=== PATIENT | male | born 1980 | race Hispanic/Latino ===

== ENCOUNTER 2018-12-04 08:41 | Emergency (ER) | payer SELFPAY ==
[2018-12-04 09:19] LABS: APPEARANCE,URINE Clear (CLEAR); BILIRUBIN,URINE Negative (NEGATIVE); COLOR,URINE Yellow (YELLOW); GLUCOSE, URINE (UA) Negative (NEGATIVE); KETONES,URINE Negative (NEGATIVE); LEUKOCYTE ESTERASE ,URINE Trace (NEGATIVE); NITRATE,URINE Negative (NEGATIVE); OCCULT BLOOD,URINE Negative (NEGATIVE); PROTEIN,URINE Negative (NEGATIVE)
[2018-12-04] MEDS ORDERED: KETOROLAC TROMETHAMINE 30MG/ML ONE (09:26)
[2018-12-04] MEDS ORDERED: ORPHENADRINE CITRATE 30 MG/ML ML ONE (09:26)
[2018-12-04 10:12] LABS: BACTERIA,URINE Few /HPF (None Seen); RBC,URINE 0-1 /HPF (0-1); SQUAMOUS EPITHELIAL CELL,UR None Seen /HPF (0-2); WBC,URINE 0-1 /HPF (0-1)
== END 2018-12-04 10:16 | disposition home or self-care (01) ==
LOC: EDH 08:41
DX: M62.830 Muscle spasm of back (principal); M54.5 Low back pain; Z72.0 Tobacco use; X50.0XXA Overexertion from strenuous movement or load, initial encounter; Y93.89 Activity, other specified; Y92.89 Other specified places as the place of occurrence of the external cause; Y99.8 Other external cause status
CPT/HCPCS: 72100; 81001; 96372 ×2; 99285; J1885; J2360